=== PATIENT | female | born 1965 | race Caucasian/White ===

== ENCOUNTER → 2021-04-16 | Outpatient (CLI) | payer OTHER ==
[~2021-04-16] MED LIST: Voltaren Gel 1 % TOP
== END ==
LOC: RAD 11:58
DX: M25.532 Pain in left wrist (principal); M51.9 Unspecified thoracic, thoracolumbar and lumbosacral intervertebral disc disorder; E55.9 Vitamin D deficiency, unspecified; M81.0 Age-related osteoporosis without current pathological fracture; Z72.0 Tobacco use
CPT/HCPCS: 73110

== ENCOUNTER → 2021-05-26 | Outpatient (CLI) | payer OTHER | LOC: MRI 02-23 13:00 → EMI 13:19 → MRI 13:45 | DX: G08 Intracranial and intraspinal phlebitis and thrombophlebitis (principal) | CPT/HCPCS: 70544 ==

== ENCOUNTER 2022-03-09 16:06 | Emergency (ER) | payer OTHER | END 2022-03-09 20:48 | disposition home or self-care (01) | LOC: ER1 16:06 | DX: R11.10 Vomiting, unspecified (principal); J44.9 Chronic obstructive pulmonary disease, unspecified; I10 Essential (primary) hypertension; E78.5 Hyperlipidemia, unspecified; F17.200 Nicotine dependence, unspecified, uncomplicated; Z90.710 Acquired absence of both cervix and uterus; Z90.49 Acquired absence of other specified parts of digestive tract | CPT/HCPCS: 71045; 81001; 94664; 99284 ==